=== PATIENT | female | born 1990 | race African-American/Black ===

== ENCOUNTER 2017-11-10 16:14 | Inpatient (IN) | payer MEDICAID ==
[2017-11-10 17:00] LABS: APPEARANCE,URINE SLIGHTLY-CLOUDY; BILIRUBIN,URINE NEGATIVE (NEGATIVE); GLUCOSE, URINE NEGATIVE (NEGATIVE); KETONES,URINE 20 mg/dL (NEGATIVE); LEUKOCYTE ESTERASE,URINE MODERATE (NEGATIVE); NITRITE,URINE NEGATIVE (NEGATIVE); PROTEIN,URINE NEGATIVE (NEGATIVE); URINE SPECIFIC GRAVITY 1.009; UROBILINOGEN,URINE NEGATIVE mg/dL (<2.0)
[2017-11-10 17:31] LABS: URINE BARBITURATES SCREEN NEGATIVE; URINE METHADONE SCREEN NEGATIVE; URINE OPIATES LOW NEGATIVE; URINE PHENCYCLIDINE SCREEN NEGATIVE
[2017-11-10] MEDS ORDERED: RINGERS SOLUTION,LACTATED 1,000 ML IV PRN (17:34)
[2017-11-10] MEDS ORDERED: NALBUPHINE HCL INJ 10 MG/1 ML AMPULE INJ ONE (17:36)
[2017-11-10] MEDS ORDERED: PROMETHAZINE HCL INJ 25 MG/1 ML VIAL IV ONE (17:36)
[2017-11-10] MEDS ORDERED: MISOPROSTOL 0.2 MG TABLET ONE (17:52)
[2017-11-10] MEDS ORDERED: OXYTOCIN/NORMAL SALINE 20 UNIT/1,000 ML RTUINJ ONE (17:53)
[2017-11-10] MEDS ORDERED: LIDOCAINE 1% INJ-PF (10 MG/ML) 30 ML SDV ONE (17:53)
[2017-11-10 18:09] LABS: ABSOLUTE MONOCYTES (AUTO) 0.9 10^3/uL (0.1-1.4); ABSOLUTE NEUT (AUTO) 11.5 10^3/uL (1.7-8.2); BASOPHILS % (AUTO) 0.1 % (0-2); EOSINOPHILS % (AUTO) 0.1 % (0-6); HEMOGLOBIN 10.5 g/dL (12.0-15.5); HGB HCT DIFFERENCE -0.5; LYMPHOCYTES % (AUTO) 19.6 % (13-45); MEAN CORPUSCULAR HEMOGLOBIN 26.6 pg (27.0-33.4); MEAN CORPUSCULAR HGB CONC 32.8 g/dL (32.0-36.0); MEAN CORPUSCULAR VOLUME 81 fl (80-97); MONOCYTES % (AUTO) 5.8 % (3-13); RED BLOOD COUNT 3.94 10^6/uL (3.72-5.28); RED CELL DISTRIBUTION WIDTH 17.7 % (11.5-14.0); SEGMENTED NEUTROPHILS % (AUTO) 74.4 % (42-78); WHITE BLOOD COUNT 15.4 10^3/uL (4.0-10.5)
[2017-11-10] MEDS ORDERED: NALBUPHINE HCL INJ 10 MG/1 ML AMPULE ONE (18:32)
[2017-11-10] MEDS ORDERED: EPHEDRINE SULFATE INJ 50 MG/1 ML AMPULE IV ONE (21:48)
[2017-11-10] MEDS ORDERED: FENTANYL/BUPIVACAINE/NS/PF 200 MCG/100 ML RTUINJ EPI PRN (21:48)
[2017-11-10] MEDS ORDERED: BUPIVACAINE HCL 0.25 % INJ/PF (2.5 MG/1 ML) 30 ML VIAL INFIL ONE (21:48)
[2017-11-10] MEDS ORDERED: BENZOIN/ALOE VERA/STORAX/TOLU TINCTURE 60 ML TP PRN (21:48)
[2017-11-10] MEDS ORDERED: DIPHENHYDRAMINE HCL 50 MG/ML VIAL IV PRN (21:48)
[2017-11-10] MEDS ORDERED: EPHEDRINE SULFATE INJ 50 MG/1 ML AMPULE IV PRN (21:48)
[2017-11-10] MEDS ORDERED: FENTANYL CITRATE INJ/PF 100 MCG/2 ML AMPUL ONE (21:49)
[2017-11-10] MEDS ORDERED: EPHEDRINE SULFATE INJ 50 MG/1 ML AMPULE ONE (21:50)
[2017-11-10] MEDS ORDERED: FENTANYL/BUPIVACAINE/NS/PF 200 MCG/100 ML RTUINJ EPI ONE (21:50)
[2017-11-10] MEDS ORDERED: BUPIVACAINE HCL 0.25 % INJ/PF (2.5 MG/1 ML) 30 ML VIAL ONE (21:50)
[2017-11-10] MEDS ORDERED: PHENYLEPHRINE HCL INJ/PF 10 MG/1 ML SDV ONE (21:50)
[2017-11-11] MEDS ORDERED: DIPH/PERTUSS(ACELL)/TETANUS VAC/PF 0.5 ML SYR (>=10YO) IM PRN (00:32)
[2017-11-11] MEDS ORDERED: ACETAMINOPHEN WITH CODEINE #3 TABLET PO PRN (00:32)
[2017-11-11] MEDS ORDERED: GLYCERIN/WITCH HAZEL LEAF 1 EACH MED..PAD TP PRN (00:32)
[2017-11-11] MEDS ORDERED: MAGNESIUM HYDROXIDE SUSP 30 ML UDCUP PO PRN (00:32)
[2017-11-11] MEDS ORDERED: DIPHENHYDRAMINE HCL 25 MG CAPSULE PO PRN (00:32)
[2017-11-11] MEDS ORDERED: PROMETHAZINE HCL 25 MG TABLET PO PRN (00:32)
[2017-11-11] MEDS ORDERED: NA PHOS,M-B/NA PHOS,DI-BA (ADULT) 133 ML ENEMA PR PRN (00:32)
[2017-11-11] MEDS ORDERED: MEASLES,MUMPS&RUBELLA VACC/PF 0.5 ML VIAL SUBCUT PRN (00:32)
[2017-11-11] MEDS ORDERED: ACETAMINOPHEN 650 MG SUPP.RECT PR PRN (00:32)
[2017-11-11] MEDS ORDERED: PSEUDOEPHEDRINE HCL 30 MG TABLET PO PRN (00:32)
[2017-11-11] MEDS ORDERED: PROMETHAZINE HCL INJ 25 MG/1 ML VIAL IV PRN (00:32)
[2017-11-11] MEDS ORDERED: BENZOCAINE/MENTHOL AEROSOL SPRAY 56 ML TOP PRN (00:32)
[2017-11-11] MEDS ORDERED: OXYTOCIN/NORMAL SALINE 20 UNIT/1,000 ML RTUINJ IV PRN (00:32)
[2017-11-11] MEDS ORDERED: ZOLPIDEM TARTRATE 5 MG TABLET PO PRN (00:32)
[2017-11-11] MEDS ORDERED: PROMETHAZINE HCL 25 MG SUPP.RECT PR PRN (00:32)
[2017-11-11] MEDS ORDERED: DIBUCAINE 1% OINTMENT 28 GM TP PRN (00:32)
[2017-11-11] MEDS ORDERED: ACETAMINOPHEN 325 MG TABLET ONE (00:53)
[2017-11-11] MEDS ORDERED: ACETAMINOPHEN 325 MG TABLET PO PRN (00:53)
--- NOTE | 2017-11-11 01:53 | Delivery Summary ---
Del Sum A-C Datetime Report Generated by CPN: 11/11/2017 01:53 DELIVERY PERSONNEL DELIVERY PERSONNEL: [id number] Delivery Doctor:: Chirag Gamez MD Labor and Delivery Nurse:: Heena Hernandez RN Labor and Delivery Nurse:: Adriana Hernandez RN Outsole Leveler/HELPER DRIVER: Aleshia Batista, PUMP MECHANIC Additional Personnel: : Renate Islas RN MATERNAL INFORMATION Delivery Anesthesia: Epidural Medications After Delivery: Pitocin Bolus-Please Comment Meds After Delivery Comment: 20 units pitocin in 1000mL NSS Estimated Blood Loss (ml): 200 Maternal Complications: None Provider Comments: pt delivered a viable male at 12:22 am 8/9 over intact peritoneum LABOR SUMMARY EDC: 11/10/2017 00:00 No. Babies in Womb: 1 Attempted: No Labor Anesthesia: Epidural LABOR INFORMATION Reason for Induction: Not Applicable Onset of Labor: 11/10/2017 17:47 Complete Dilatation: 11/10/2017 22:48 Oxytocin: Augmentation Group B Beta Strep: Negative Antibiotics # of Doses: 0 Steroids Given: None Reason Steroids Not Administered: Not Applicable MEMBRANES Membranes Rupture Method: Artificial Rupture of Membranes: 11/10/2017 17:47 Length of Rupture (hr): 6.58 Amniotic Fluid Color: Clear Amniotic Fluid Amount: Small Amniotic Fluid Odor: Normal STAGES OF LABOR Stage 1 hr: 5 Stage 1 min: 1 Stage 2 hr: 1 Stage 2 min: 34 Stage 3 hr: 0 Stage 3 min: 3 Total Time in Labor hr: 6 Total Time in Labor min: 38 VAGINAL DELIVERY Episiotomy: None Laceration #1: None Laceration Extension #1: N/A Laceration Repair: Not Applicable Sponge Count Correct: N/A Sharps Count Correct: N/A CSECTION DELIVERY Primary Indication: N/A Secondary Indication: N/A CSection Incidence: N/A Labor: N/A Elective: N/A CSection Incision: N/A BABY A INFORMATION Infant Delivery Date/Time: 11/11/2017 00:22 Method of Delivery: Vaginal Born in Route : No : N/A Forceps: N/A Vacuum Extraction: N/A Shoulder Dystocia : No PRESENTATION/POSITION BABY A Presentation: Cephalic Cephalic Presentation: Vertex Vertex Position: Right Occipital Anterior Breech Presentation: N/A PLACENTA INFORMATION BABY A Placenta Delivery Time : 11/11/2017 00:25 Placenta Method of Delivery: Spontaneous Placenta Status: Delivered SCORES BABY A Heart Rate 1 min: >100 bpm Resp Effort 1 min: Slow, Irregular Reflex Irritability 1 min: Cough or Sneeze or Pulls Away Muscle Tone 1 min: Active Motion Color 1 min: Body [place], Extremities Blue Resuscitation Effort 1 min: Tactile Stimulation SCORE 1 MIN: 8 Heart Rate 5 min: >100 bpm Resp Effort 5 min: [place] Reflex Irritability 5 min: Cough or Sneeze or Pulls Away Muscle Tone 5 min: Active Motion Color 5 min: Body [place], Extremities Blue Resuscitation Effort 5 min: Tactile Stimulation SCORE 5 MIN: 9 INFORMATION BABY A Gestational Age at Delivery: 40.1 Gestational Status: Full Term- 39- 40.6 Weeks Outcome : Liveborn Infant Condition : Stable Sex: Male IDENTIFICATION BABY A Verification Date/Time: 11/11/2017 00:27 ID Band Number: [id number] Mother's Name Verified: Yes Infant RN Verifying : SBrayden Isals, RN Additional Verifying Personnel: DBrayden Yong, HELPER DRIVER/US WEIGHT/LENGTH BABY A Birthweight (gm): 2910 Weight (lb): 6 Infant Weight (oz): 7 Length (in): 20.50 Length (cm): 52.07 CORD INFORMATION BABY A No. Cord Vessels: 3 Nuchal Cord : N/A Cord Blood Taken: Yes-For Eval (Mom's Blood Type - or O+) Infant Suction: Mouth; Nose ASSESSMENT BABY A Complications: Multiple Variable Decels Physical Findings at Delivery: Molding of the Head Infant Respirations: Appears Normal Skin to Skin: Yes Skin to Skin Time (min): 30 Cash Posting Specialist/ALS Called : No Infant Care By: Keke Hernandez RN Transferred To: Remains with Mother BABY B INFORMATION : N/A SIGNATURES Signature: with User ID: [email or web address]
--- NOTE | 2017-11-11 02:36 | Admission Physical ---
Datetime Report Generated by CPN: 11/11/2017 02:35 CURRENT ADMISSION Chief Complaint: Uterine Contractions Indication for Induction: Term, Intrauterine Admit Plan: Admit to Unit; Initiate Labor Protocol ALLERGIES Medication Allergies: Yes Medication Allergies: No Known Allergies (11/10/2017) Medication Allergies: Penicillin Latex: No Latex Allergies Food Allergies: N/A Environmental Allergies: N/A OBSTETRICAL HISTORY EDC: 11/10/2017 00:00 : 2 Para: 1 Term: 1 : 0 SAB: 0 IAB: 0 Ectopic: 0 Livin Cesareans: 0 VBACs: 0 Multiple Births: 0 Gestational Diabetes: No Rh Sensitization: No Incompetent Cervix: No TAI: No Infertility: No ART Treatment: No Uterine Anomaly: No IUGR: No Hx Previous C/S: No Macrosomia: No Hx Loss/Stillborn: No PIH: No Hx : No Placenta Previa/Abruption: No Depression/PP Depression: No PTL/PROM: No Post Hemorrhage: No Current Procedures: Ultrasound; NST Obstetrical History Comments: G1 - 2010, Term baby boy 7lbs 2 oz G2 - Current SEE RECORDS Alcohol: No Marijuana : No Cocaine: No Other Illicit Drugs: No Cigarettes: Never Smoker. [id number] MEDICAL HISTORY Diabetes: No Blood Transfusion: No Pulmonary Disease (Asthma, TB): No Breast Disease: No Hypertension: No Coding And Reimbursement Specialist Surgery: No Heart Disease: No Hosp/Surgery: No Autoimmune Disorder: No Anesthetic Complications: No Kidney Disease: No Abnormal Pap Smear: No Neuro/Epilepsy: No Psychiatric Disorders: No Other Medical Diseases: No Hepatitis/Liver Disease: No Significant Family History: No Varicosities/Phlebitis: No Trauma/Violence : No Thyroid Dysfunction: No INFECTIOUS HISTORY Gonorrhea: No Genital Herpes: No Chlamydia: No Tuberculosis: No Syphilis: No Hepatitis: No HIV/AIDS Exposure: No Rash or Viral Illness: No HPV: No PHYSICAL EXAM General: Normal HEENT: Normal Neurologic: Normal Thyroid: Normal Heart: Normal Lungs: Normal Breast: Normal Back: Normal Abdomen: Normal Genitourinary Exam: Normal Extremities: Normal DTRs: Normal Pelvic Type: Adequate Vital Signs: Reviewed VAGINAL EXAM Dilatation: 6 Effacement: 70 Station: -2 MEMBRANES Membranes: Intact FETUS A EGA: 40.0 Monitoring: External US FHR- Baseline: 120 Variability: Moderate 6-25bpm Decelerations: None FHR Category: Category III Admit Comment: 26 yo admitted in active labor EDC 11/10/17 EGA 40 weeks abdomen nontender FHTs reactive cervical exam anticipate uterine contractions q 3-6 min apart PLANS FOR LABOR AND DELIVERY Labor and Delivery: None Pain Management: Natural Feeding Preference: Formula Benefit of Breast Feed Discussed: Yes Circumcision: No INFORMED CONSENT Assignment: Chirag Gamez MD Signature: with User ID: Sara : with User ID: [email or web address]
[2017-11-11] MEDS: IBUPROFEN 800 MG TABLET PO SCH ×3 (06:28→21:22)
--- NOTE | 2017-11-11 09:51 | PDOC PROGRESS REPORT ---
Subjective-OB Subjective: Post Delivery Day: 26 year old. Denies any needs at this time Physical Exam (OB) Vital Signs: Temp Pulse Resp BP Pulse Ox 98.1 F 74 16 103/57 L 100 11/11/17 07:29 11/11/17 07:29 11/11/17 07:29 11/11/17 07:29 11/11/17 07:29 Intake & Output 11/10/17 11/11/17 11/12/17 06:59 06:59 06:59 Weight 75.8 kg - Lochia Lochia Amount: Small 10-25 ml Lochia Color: Rubra/Red - Abdomen Description: Tender, Soft Hernia Present: No Bowel Sounds: Normoactive Flatus Presence: Present Stool: No Fundal Description: Firm, Midline Fundal Height: u/u - u/2 Objective-Diagnostic Laboratory: 11/10/17 17:50 11/10/17 11/10/17 11/10/17 16:22 17:50 17:50 WBC 15.4 H RBC 3.94 Hgb 10.5 L Hct 32.0 L MCV 81 MCH 26.6 L MCHC 32.8 RDW 17.7 H Plt Count 300 Seg Neutrophils % 74.4 Lymphocytes % 19.6 Monocytes % 5.8 Eosinophils % 0.1 Basophils % 0.1 Absolute Neutrophils 11.5 H Absolute Lymphocytes 3.0 Absolute Monocytes 0.9 Absolute Eosinophils 0.0 Absolute Basophils 0.0 Urine Color YELLOW Urine Appearance SLIGHTLY-CLOUDY Urine pH 7.0 Ur Specific [place] 1.009 Urine Protein NEGATIVE Urine Glucose (UA) NEGATIVE Urine Ketones 20 H Urine Blood NEGATIVE Urine Nitrite NEGATIVE Ur Leukocyte Esterase MODERATE H Urine WBC (Auto) 7 Urine RBC (Auto) 0 Blood Type O POSITIVE Antibody Screen NEGATIVE
[2017-11-11] MEDS: PRENATAL VITAMIN W DHA CAPSULE PO SCH (11:04)
[2017-11-11] MEDS: FERROUS SULFATE 325 MG TABLET PO SCH ×2 (11:05→19:05)
[2017-11-11] MEDS: SENNOSIDES/DOCUSATE 8.6-50 MG 1 EACH TABLET PO SCH (11:05)
[2017-11-11] MEDS: DOCUSATE SODIUM 100 MG CAPSULE PO SCH ×2 (11:05→19:05)
[2017-11-11] MEDS: FAMOTIDINE 20 MG TABLET PO SCH ×2 (11:42→21:21)
[2017-11-12] MEDS: IBUPROFEN 800 MG TABLET PO SCH ×2 (06:14→13:08)
[2017-11-12 07:24] LABS: HEMATOCRIT 28.3 % (36.0-47.0); HEMOGLOBIN 9.2 g/dL (12.0-15.5); HGB HCT DIFFERENCE -0.7; MEAN CORPUSCULAR HEMOGLOBIN 26.5 pg (27.0-33.4); MEAN CORPUSCULAR HGB CONC 32.4 g/dL (32.0-36.0); MEAN CORPUSCULAR VOLUME 82 fl (80-97); RED BLOOD COUNT 3.45 10^6/uL (3.72-5.28); RED CELL DISTRIBUTION WIDTH 17.7 % (11.5-14.0); WHITE BLOOD COUNT 12.8 10^3/uL (4.0-10.5)
[2017-11-12 08:48] VITALS: BP 105/74
[2017-11-12] MEDS: SENNOSIDES/DOCUSATE 8.6-50 MG 1 EACH TABLET PO SCH (10:31)
[2017-11-12] MEDS: FERROUS SULFATE 325 MG TABLET PO SCH (10:31)
[2017-11-12] MEDS: FAMOTIDINE 20 MG TABLET PO SCH (10:31)
[2017-11-12] MEDS: PRENATAL VITAMIN W DHA CAPSULE PO SCH (10:32)
[2017-11-12] MEDS: DOCUSATE SODIUM 100 MG CAPSULE PO SCH (10:32)
--- NOTE | 2017-11-12 10:32 | PDOC PROGRESS REPORT ---
Subjective-OB Subjective: Post Delivery Day: 26 year old. Denies any needs at this time. Doing well, no concerns. Baby . Pt ambulatory, voiding well and reports light bleeding. Physical Exam (OB) Vital Signs: Temp Pulse Resp BP Pulse Ox 98.1 F 75 16 105/74 99 11/12/17 09:35 11/12/17 09:35 11/12/17 09:35 11/12/17 09:35 11/12/17 09:35 Intake & Output 11/11/17 11/12/17 11/13/17 06:59 06:59 06:59 Intake Total 400 Balance 400 Weight 75.8 kg - Lochia Lochia Amount: Scant < 10 ml Lochia Color: Rubra/Red - Abdomen Description: Soft, Round Hernia Present: No Fundal Description: Firm, Midline Fundal Height: u/u - u/2 Objective-Diagnostic Laboratory: 11/12/17 06:46 11/12/17 06:46 WBC 12.8 H RBC 3.45 L Hgb 9.2 L Hct 28.3 L MCV 82 MCH 26.5 L MCHC 32.4 RDW 17.7 H Plt Count 286 Assessment and Plan(PN) - Assessment and Plan (1) Delivery normal Is this a current diagnosis for this admission?: Yes - Time Spent with Patient Time with patient: Less than 15 minutes Medications reviewed and adjusted accordingly: Yes - Disposition Anticipated Discharge: Home Within: within 24 hours
--- NOTE | 2017-11-12 13:55 | PDOC DISCHARGE SUMMARY ---
Final Diagnosis Discharge Date: 11/12/17 - Final Diagnosis (1) Delivery normal Is this a current diagnosis for this admission?: Yes Discharge Data - Discharge Medication Home Medications: Vit/Iron Fum/Folic AC [ Tablet] 1 each PO DAILY 11/10/17 Reason(s) for Admission: Onset of Labor Procedures: NST Intrapartum Procedure(s): Spontaneous Vaginal Delivery - Diagnosis Test Laboratory: Temp Pulse Resp BP Pulse Ox 98.1 F 75 16 105/74 99 11/12/17 09:35 11/12/17 09:35 11/12/17 09:35 11/12/17 09:35 11/12/17 09:35 11/10/17 11/10/17 11/12/17 16:22 17:50 06:46 RBC 3.94 3.45 L Hgb 10.5 L 9.2 L Hct 32.0 L 28.3 L Urine Opiates Screen NEGATIVE - Discharge information/Instructions Discharge Activity: Activity As Tolerated, Balance Activity w/Rest, No Lifting Over 10 Pounds, No Lifting/Push/Pulling, Pelvic Rest, No tub bath Discharge Diet: Regular Disposition: HOME, SELF-CARE Follow up with: [facility] in: 4, Weeks
== END 2017-11-12 15:00 | disposition home or self-care (01) | DRG 775 ==
LOC: LC 16:14 → LR 17:05 → 2S 11-11 02:35
PROVIDERS: ADMIT Obstetrics & Gynecology Gynecology; ATTEND Obstetrics & Gynecology Gynecology
PROC: 10907ZC Drainage of Amniotic Fluid, Therapeutic from Products of Conception, Via Natural or Artificial Opening (ICD-10-PCS; 2017-11-10)
PROC: 4A1HXCZ Monitoring of Products of Conception, Cardiac Rate, External Approach (ICD-10-PCS; 2017-11-10)
PROC: 10E0XZZ Delivery of Products of Conception, External Approach (ICD-10-PCS; principal; 2017-11-11)
DX: O80 Encounter for full-term uncomplicated delivery (principal); Z28.21 Immunization not carried out because of patient refusal; Z88.0 Allergy status to penicillin; Z3A.40 40 weeks gestation of pregnancy; Z37.0 Single live birth
CPT/HCPCS: 36415; 59025; 80307; 81001; 85025; 85027; 86592; 86850; 86900; 86901; 94760; J2300; J2370; J2590; J3010; J3490

== ENCOUNTER 2018-02-17 09:04 | Emergency (ER) | payer SELFPAY ==
--- NOTE | 2018-02-17 09:26 | ER Document Report ---
ED ENT - General Chief Complaint: Sore Throat Stated Complaint: SORE THROAT, EARACHE Time Seen by Provider: 02/17/18 09:26 Notes: 27-year-old female patient emergency department complaining of sore throat and now with left ear pain for the last couple of days. Has a runny nose cough and congestion. No fevers. Has been taking ibuprofen but still hurts. Was concerned that she might be able to give something to her baby so wanted to get checked out. Has a 3-month-old at home. No shortness of breath. No significant fevers. TRAVEL OUTSIDE OF THE [place] IN LAST 30 DAYS: No - HPI Patient complains to provider of: Ear problem, Throat problem Onset: Other - 4 days ago Severity: Mild Pain Level: 1 - Related Data Allergies/Adverse Reactions: No Known Allergies Allergy (Verified 02/17/18 09:05) Past Medical History - General Information source: Patient - Social History Smoking Status: Never Smoker Frequency of alcohol use: None Drug Abuse: None Lives with: Family Family History: Reviewed & Not Pertinent - Medical History Medical History: Negative Review of Systems - Review of Systems Constitutional: denies: Fever, Malaise, Weakness EENT: Ear pain, Nose congestion, Throat pain. denies: Difficulty swallowing, Throat swelling, Mouth pain Cardiovascular: denies: Chest pain, Palpitations, Heart racing Respiratory: Cough. denies: Hurts to breathe, Hemoptysis, Short of breath, Wheezing Gastrointestinal: denies: Abdominal pain, Diarrhea, Nausea, Vomiting Genitourinary: denies: Burning, Dysuria, Flank pain Hematologic/Lymphatic: denies: Anemia, Easy bleeding, Easy bruising Neurological/Psychological: denies: Confusion, Weakness, Numbness Physical Exam - Vital signs Vitals: Temp Pulse Resp BP Pulse Ox 98.7 F 88 18 122/79 98 02/17/18 09:07 02/17/18 09:07 02/17/18 09:07 02/17/18 09:07 02/17/18 09:07 Interpretation: Normal - General General appearance: Appears well - HEENT Head: Normocephalic, Atraumatic Eyes: Normal Pupils: PERRL Tympanic membrane: Normal, Other - Is a moderate amount of wax noted in the left external canal however was able to see around and visualize about half of the tympanic membrane on the left which appears to be non-erythematous, nonbulging Mucous membranes: Normal Pharynx: Other - There is some mild erythema on the soft palate however no obvious exudates. Neck: No: Lymphadenopathy, Meningismus, Neck mass, Shotty nodes - Respiratory Respiratory status: No respiratory distress Chest status: Nontender Breath sounds: Normal Chest palpation: Normal - Cardiovascular Rhythm: Regular Heart sounds: Normal auscultation Murmur: No Course - Re-evaluation Re-evalutation: 02/17/18 10:10 Rapid strep test is negative. Will encourage symptomatic care at this time. We will add culture for throat. Return for worsening symptoms or concerns. Of note, antibiotic prescription was provided in the event that the culture results are positive but patient has been instructed not to begin it at this time. We have instructed patient that if culture results are positive that are follow-up nurse will give her a call and then she can get the prescription filled. - Vital Signs Vital signs: Temp Pulse Resp BP Pulse Ox 98.7 F 88 18 122/79 98 02/17/18 09:07 02/17/18 09:07 02/17/18 09:07 02/17/18 09:07 02/17/18 09:07 Discharge - Discharge Clinical Impression: Viral pharyngitis Condition: Good Disposition: HOME, SELF-CARE Instructions: Acetaminophen, Viral Syndrome ([facility]), Sore Throat ([facility]) Prescriptions: Clindamycin HCl 300 mg PO QID 7 Days #28 capsule Ibuprofen [Motrin 800 mg Tablet] 800 mg PO Q8H PRN #30 tab PRN Reason:
[2018-02-17 10:39] VITALS: BP 117/75
== END 2018-02-17 10:31 | disposition home or self-care (01) ==
LOC: ER 09:04
DX: J02.8 Acute pharyngitis due to other specified organisms (principal); B97.89 Other viral agents as the cause of diseases classified elsewhere; H61.22 Impacted cerumen, left ear; H92.02 Otalgia, left ear; R09.89 Other specified symptoms and signs involving the circulatory and respiratory systems; R05 Cough; R09.81 Nasal congestion
CPT/HCPCS: 87070; 87880; 99283